=== PATIENT | female | born 1970 | race Caucasian/White ===

== ENCOUNTER 2020-04-21 04:57 | Observation (INO) | payer BC ==
[2020-04-21] VITALS (12 sets, daily range): BP systolic 90–142; BP diastolic 30–86; PULSE 79–95; TEMP 97.7–98.5
[~2020-04-21] VITALS: Ht 172.7 cm; Wt 109.1 kg
[2020-04-21 05:52] LABS: BASO % 0.2 % (0.0-2.0); EOS # 0.1 (0.0-0.7); EOS % 0.7 % (0-4.0); GRAN # 8.8 (1.4-6.5); GRAN % 81.5 % (42.2-75.2); HEMATOCRIT 46.5 % (37.0-47.0); HEMOGLOBIN 15.6 g/dl (12.5-16.0); LYMPH # 1.4 (1.2-3.4); LYMPH % 12.9 % (20.0-51.0); MEAN CELL VOLUME 86 fl (80.0-100.0); MEAN CORPUSCULAR HEMOGLOBIN 29 pg (27.0-31.0); MEAN CORPUSCULAR HGB CONC 34 g/dl (33.0-37.0); MEAN PLATELET VOLUME 9.2 fl (7.4-10.4); MONO # 0.4 (0.1-0.6); PLATELET COUNT 338 K/mm3 (130-400); RED BLOOD COUNT 5.44 M/mm3 (4.10-5.30); REDCELL DISTRIBUTION WIDTH-CV 12.1 % (11.5-14.5)
[2020-04-21 06:13] LABS: ALBUMIN 4.7 gm/dL (3.5-5.0); BILIRUBIN,TOTAL 0.6 mg/dL (0.0-1.0); CALCIUM 8.9 mg/dL (8.4-10.2); CREATININE, serum 0.5 (0.52-1.25); TOTAL PROTEIN 8.3 gm/dL (6.4-8.2)
[2020-04-21] MEDS ORDERED: GLUMETZA1000 MG PO (06:31)
[2020-04-21] MEDS ORDERED: TAGAMET200 MG PO (06:32)
[2020-04-21] MEDS ORDERED: GLUCOTROL10 MG PO (06:32)
[2020-04-21] MEDS ORDERED: VICTOZA6 MG/ML SQ (06:32)
[2020-04-21] MEDS ORDERED: HCTZ 25MG TAB25 MG PO (06:33)
[2020-04-21] MEDS ORDERED: ATARAX 10MG10 MG/TAB PO (06:33)
[2020-04-21] MEDS ORDERED: NEURONTIN300 MG/CAP PO (06:34)
[2020-04-21 07:32] LABS: COLLECTION METHOD CLEAN CATCH
[2020-04-21 07:47] LABS: MUCOUS Present /lpf; PH 5 (5-8); URINE APPEARANCE Hazy; URINE BACTERIA None Seen /hpf; URINE BILIRUBIN Negative (NEGATIVE); URINE BLOOD Negative (NEGATIVE); URINE COLOR Yellow; URINE GLUCOSE 3+ (NEGATIVE); URINE KETONE 2+ (NEGATIVE); URINE LEUKOCYTE ESTERASE Negative (NEGATIVE); URINE NITRATE Negative (NEGATIVE); URINE PROTEIN(semi-quant) Negative (NEGATIVE); URINE RBC 0-2 /hpf; URINE UROBILINOGEN Negative (NEGATIVE)
--- NOTE | 2020-04-21 09:35 | NUR ---
The patient arrived to [facility] from the ER at this time. The patient transferred herself over from wheelchair to the cart in her room independently and appeared to tolerate the activity well. The patient has an IV to her right anecubital and has Levaquin infusing from the ER at this time. Call light is within reach. The patient was given a warm blanket at this time. The patient was told that she will be tested for COVID prior to OR and a phlebotomy services representative from the lab was called to come administer the test. Will continue to monitor the patient.
--- NOTE | 2020-04-21 11:15 | NUR ---
Dr. Anderson is at the patient's bedside talking with her about her scheudled surgery and answering any questions at this time. Will continue to monitor the patient.
--- NOTE | 2020-04-21 11:34 | NUR ---
The patient reports increased pain in her abdomen at this time and was given a PRN dose of dilaudid at this time. The patient's blood sugar was 298 and an order for insulin was obtained from GIRISH Momin and administered. Call light is within reach. Will continue to monitor the patient.
--- NOTE | 2020-04-21 12:12 | NUR ---
The patient's blood sugar was rechecked with a result of 270. GIRISH Avila was notified of the patient's current blood sugar and has no further orders at this time. Will continue to monitor the patient.
--- NOTE | 2020-04-21 16:44 | NUR ---
Patient to room from PACU. Ambulates from cart in the [place] to bathroom. Voids without difficulty. Assist patient into bed. Patient gait slow but steady. Rates pain in abd 2/10 which is tolerable. Lap sites x4 to abd with bandaids CDI. Patient oriented to room. Denies needs at this time.
[2020-04-21] MEDS ORDERED: ZYRTEC 10MG10 MG PO (16:54)
--- NOTE | 2020-04-21 19:56 | NUR ---
Pt assessment completed and documented. Pt resting in bed at this time watching televsion. Pt able to eat 100% of dinner. Complaints of 2/10 "discomfort" to her abdomen that is intermittent with coughing or deep breathing. Pt states she does not want anything for pain at this time. IVF infusing per orders to right hand IV site. Abdominal lap sites x4 CDI with bandaids in place. Pt denies any other needs at this time. Call light within reach. Will continue to monitor
[2020-04-22 03:43] VITALS: BP 125/85; PULSE 90; TEMP 98.2
--- NOTE | 2020-04-22 05:37 | NUR ---
Pt awake intermittently throughout the night. PRN atarax given this morning per orders for pts "chronic hives" that started near her groin and spread to her buttocks. PRN motrin given for complaints of RUQ pain that radiated to her right flank. Pt was able to ambulate halls a few times overnight. Pt denies any other needs call light within reach.
--- NOTE | 2020-04-22 06:45 | NUR ---
Sitting up in bed with eyes open watching TV. Minimal pain at this time. Patient says that the lap site near her umbilicus is the most sore. Lap sites with bandaids CDI x4. Patient says that she is passing some gas, urinating without difficulty. Patient says that she has been up ambulating in halls through the night. Is hoping to go home today. Denies any additional needs at this time.
[2020-04-22 07:44] VITALS: BP 113/56; PULSE 97; TEMP 98.6
--- NOTE | 2020-04-22 10:49 | NUR ---
Having pain in abd and would like ibuprofen, will administer as precribed. Patient also continues to itch from chronic hives, administer Atarax as prescribed. Patient walks in halls. Denies additional needs.
[2020-04-22 11:35] VITALS: BP 117/71; PULSE 101; TEMP 100.7
--- NOTE | 2020-04-22 11:50 | NUR ---
Temp 100.7, administer Tylenol at this time. Patient says that she feels fine. Rates pain in abd 2/10, increases to 5/10 with activity. Continues to have some itching, hive flare starting to decrease. Sitting up in recliner at this time. Denies additional needs.
[2020-04-22] MEDS ORDERED: ULTRAM 50MG TAB50 MG PO (12:39)
--- NOTE | 2020-04-22 13:07 | NUR ---
First visit from the machine plate stacker. No needs right now.
[2020-04-22 13:47] VITALS: TEMP 99
--- NOTE | 2020-04-22 13:55 | NUR ---
Reviewed all discharge instructions with the patient. Questions answered. Verbalizes understanding to all. Patient signs discharge paperwork, packet provided to the patient. Patient says that the earliest that her ride will be here to pick her up will be around 1630. Explain that is fine and once she is ready to go to use call light. Sitting in recliner. Denies additional needs at this time.
--- NOTE | 2020-04-22 15:24 | NUR ---
Remains sitting up in recliner with eyes closed. No signs or symptoms of discomfort noted at this time.
[2020-04-22 16:16] VITALS: BP 111/66; PULSE 83; TEMP 98.7
--- NOTE | 2020-04-22 16:38 | NUR ---
Patient up in room gathering all belongings. Says that her ride will be here to pick her up in about 20 minutes. Administered ibuprofen as prescribed. Patient denies additional needs at this time.
--- NOTE | 2020-04-22 17:05 | NUR ---
Patient ride here to pick her up. Patient assisted to POV via wheel chair by DARIUS Simon, with all personal belongings.
== END 2020-04-22 17:08 | disposition home or self-care (01) ==
LOC: COL.ER 04:57 → SURG 09:29 → SDCO 09:29 → SURG 13:31
PROVIDERS: Emergency Medicine; ADMIT Surgery
DX: K80.10 Calculus of gallbladder with chronic cholecystitis without obstruction (principal); E11.9 Type 2 diabetes mellitus without complications; L50.8 Other urticaria; K21.9 Gastro-esophageal reflux disease without esophagitis; Z20.828 Contact with and (suspected) exposure to other viral communicable diseases; Z87.891 Personal history of nicotine dependence; Z79.899 Other long term (current) drug therapy; Z88.1 Allergy status to other antibiotic agents; Z88.0 Allergy status to penicillin; Z79.84 Long term (current) use of oral hypoglycemic drugs
CPT/HCPCS: G0378; J0330; J1170; J1815; J1956; J2060; J2250; J2405; J2550; J2704; J2765; J3010; J7030; Q9967

== ENCOUNTER 2020-07-23 17:25 | Emergency (ER) | payer BC ==
[~2020-07-23] VITALS: Ht 175.3 cm; Wt 113.6 kg
[~2020-07-23 17:25] MED LIST: ATARAX 10MG10 MG/TAB PO; GLUCOTROL10 MG PO; GLUMETZA1000 MG PO; HCTZ 25MG TAB25 MG PO; NEURONTIN300 MG/CAP PO; TAGAMET200 MG PO; ULTRAM 50MG TAB50 MG PO; VICTOZA6 MG/ML SQ; ZYRTEC 10MG10 MG PO
[2020-07-23 18:29] VITALS: BP 142/70; PULSE 79; TEMP 98.8
== END 2020-07-23 18:29 | disposition home or self-care (01) ==
LOC: COL.ER 17:25
DX: L50.0 Allergic urticaria (principal); K80.50 Calculus of bile duct without cholangitis or cholecystitis without obstruction; E11.9 Type 2 diabetes mellitus without complications; Z90.49 Acquired absence of other specified parts of digestive tract; Z88.0 Allergy status to penicillin; Z88.1 Allergy status to other antibiotic agents; Z79.4 Long term (current) use of insulin
CPT/HCPCS: J1100